=== PATIENT | female | born 1980 | race Hispanic/Latino ===

== ENCOUNTER 2016-12-11 01:18 | Emergency (ER) | payer BC ==
[2016-12-11 01:40] VITALS: O2SAT 98
--- NOTE | 2016-12-11 02:25 | ED PDOC ---
HPI: Abdomen Time Seen by Provider: 12/11/16 01:30 Chief Complaint (Nursing): GI Problem Chief Complaint (Provider): GI Problem History Per: Patient History/Exam Limitations: no limitations Onset/Duration Of Symptoms: Hrs (Three) Outside of [place] travel?: No Current Symptoms Are (Timing): Still Present Severity: Mild Associated Symptoms: Nausea, Vomiting. denies: Fever, Chills, Diarrhea, Chest Pain Exacerbating Factors: Movement Additional Complaint(s): 36 y/o female patient presenting to the ED with nausea, vomiting and dizziness. Patient states she was sleeping and was woken up with dizziness. When she got up she notes she began feeling nauseous and began vomiting a few times over the last three hours. Patient reports nausea, vomiting and dizziness (which she notes appears that the room is "swinging") and denies diarrhea, syncope, ear pain or ringing and headache. Patient denies any past medical history and current primary care provider is Dr. Daniela Hahn MD. Past Medical History Reviewed: Historical Data, Nursing Documentation, Vital Signs Vital Signs: Last Vital Signs Temp 98.1 F 12/11/16 05:04 Pulse 74 12/11/16 06:20 Resp 18 12/11/16 05:04 BP 114/71 12/11/16 05:04 Pulse Ox 98 12/11/16 06:20 - Medical History PMH: Hypothyroidism - Surgical History Surgical History: Tonsillectomy - Family History Family History: States: Unknown Family Hx - Social History Current smoker - smoking cessation education provided: No Alcohol: None Drugs: Denies - Home Medications Home Medications: Ambulatory Orders Medication Instructions Recorded Levothyroxine Sodium [Synthroid] 0.135 mg PO 02/01/14 Ondansetron ODT [Zofran ODT] 4 mg PO Q6 PRN #16 odt 02/02/14 Meclizine [Meclizine*] 25 mg PO Q6 PRN #15 tab 12/11/16 - Allergies Allergies/Adverse Reactions: Allergies Allergy/AdvReac Type Severity Reaction Status Date / Time No Known Allergies Allergy Verified 02/01/14 21:56 Review of Systems ROS Statement: Except As Marked, All Systems Reviewed And Found Negative Constitutional: Negative for: Fever ENT: Negative for: Ear Pain ((-)Ear Ringing) Cardiovascular: Negative for: Chest Pain Gastrointestinal: Positive for: Nausea, Vomiting. Negative for: Diarrhea Neurological: Positive for: Dizziness, Other ((-)Syncope). Negative for: Headache Physical Exam - Reviewed Nursing Documentation Reviewed: Yes Vital Signs Reviewed: Yes - Physical Exam Appears: Positive for: No Acute Distress, In Acute Distress Head Exam: Positive for: ATRAUMATIC, NORMAL INSPECTION Skin: Positive for: Normal Color, Warm, Dry Eye Exam: Positive for: Normal appearance ENT: Positive for: Normal ENT Inspection Neck: Positive for: Normal, Painless ROM, Supple Cardiovascular/Chest: Positive for: Regular Rate, Rhythm. Negative for: Murmur Respiratory: Positive for: Normal Breath Sounds. Negative for: Wheezing, Respiratory Distress Gastrointestinal/Abdominal: Positive for: Normal Exam Neurologic/Psych: Positive for: Alert, Oriented. Negative for: Motor/Sensory Deficits - Laboratory Results Result Diagrams: 12/11/16 02:28 12/11/16 02:28 - ECG ECG: Positive for: Interpreted By Me, Viewed By Me ECG Rhythm: Positive for: Normal QRS, Normal ST Segment, Sinus Rhythm, Right Bundle Branch Block Rate: 74 O2 Sat by Pulse Oximetry: 98 (RA) Pulse Ox Interpretation: Normal - Progress Re-evaluation Time: 06:00 Condition: Re-examined, Improved Medical Decision Making Medical Decision Making: Time: 211 Initial impression: Vertigo with vomiting Initial plan: --HEAD W/O CONTRAST --EKG --CMP --TROPONIN I --ED URINE DIPSTICK --ED URINE --EKG-ED --CBC --MECLIZINE 25MG PO ONCE --ONDANSETRON 4MG IV ONCE [id number]: EXAM: CT Head Without Intravenous Contrast CLINICAL HISTORY: 36 years old, female; Signs and symptoms; Dizziness TECHNIQUE: Axial computed tomography images of the head/brain without intravenous contrast. This CT exam was performed using one or more of the following dose reduction techniques: automated exposure control, adjustment of the mA and/or kV according to patient size, and/or use of iterative reconstruction technique. Coronal and sagittal reformatted images were created and reviewed. EXAM DATE/TIME: 12/11/2016 2:16 AM COMPARISON: No relevant prior studies available. FINDINGS: There is no midline shift or mass effect. There is no intracranial blood or extra-axial fluid collection. There is no acute ischemic stroke. The skull shows no evidence of injury or other acute pathologic processes. IMPRESSION: There is no acute intracranial abnormality Scribe Attestation: Documented by Selina Colon, acting as a scribe for Dennise Lam MD. Scribe Attestation: All medical record entries made by the Scribe were at my direction and personally dictated by me. I have reviewed the chart and agree that the record accurately reflects my personal performance of the history, physical exam, medical decision making, and the department course for this patient. I have also personally directed, reviewed, and agree with the discharge instructions and disposition. Disposition - Clinical Impression Clinical Impression: Vertigo - Patient ED Disposition Is Patient to be Admitted: No Doctor Will See Patient In The: Office Counseled Patient/Family Regarding: Studies Performed, Diagnosis, Need For Followup - Disposition Referrals: Daniela Hahn MD [Primary Care Provider] - Leon Gonzalez MD [Staff Provider] - Hermilo Hinton MD [Medical Doctor] - Disposition: Routine/Home Disposition Time: 06:19 Condition: GOOD Additional Instructions: Take your medications as instructed. Follow up with your PCP in 2-3 days. Prescriptions: Meclizine [Meclizine*] 25 mg PO Q6 PRN #15 tab PRN Reason: Dizziness Instructions: Vertigo (ED) Forms: [employer] (Macedonian)
[2016-12-11 02:37] LABS: ALBUMIN 4.6 g/dL (3.5-5.0)
[2016-12-11 02:39] LABS: GFR AFRICAN-AMERICAN > 60; GFR NON-AFRICAN AMERICAN > 60
[2016-12-11 02:40] LABS: ALB/GLOB RATIO 1.5 (1.0-2.1); ALT/SGPT 30 U/L (9-52); AST/SGOT 33 U/L (14-36); BLOOD UREA NITROGEN 23 mg/dl (7-17)
[2016-12-11 02:41] LABS: CALCIUM 9.8 mg/dL (8.4-10.2)
[2016-12-11 02:43] LABS: BASO % 0.5 % (0.0-2.0); EOS # 0.1 K/uL (0.0-0.7); HEMOGLOBIN 13.3 g/dL (12.0-16.0); LYMPH # 1.7 K/uL (1.0-4.3); LYMPH % 19.6 % (20.0-40.0); MEAN CORPUSCULAR HEMOGLOBIN 28.6 pg (27.0-31.0); MEAN CORPUSCULAR HGB CONC 33.2 g/dL (33.0-37.0); MONO # 0.5 K/uL (0.0-0.8); MONO % 5.4 % (0.0-10.0); NEUT # 6.5 K/uL (1.8-7.0); NEUT % 73.5 % (50.0-75.0); RBC 4.66 Mil/uL (3.80-5.20); RED CELL DISTRIBUTION WIDTH 13.7 % (11.5-14.5); WHITE BLOOD COUNT 8.8 K/uL (4.8-10.8)
[2016-12-11 05:05] VITALS: BP 114/71; RESP 18; TEMP 98.1
[2016-12-11 06:20] VITALS: PULSE 74
--- NOTE | 2016-12-11 08:52 | CT ---
PROCEDURE: CT HEAD WITHOUT CONTRAST. HISTORY: dizziness COMPARISON: None available. TECHNIQUE: Axial computed tomography images were obtained through the head/brain without intravenous contrast. Radiation dose: Total exam DLP = 843.87 mGy-cm. This CT exam was performed using one or more of the following dose reduction techniques: Automated exposure control, adjustment of the mA and/or kV according to patient size, and/or use of iterative reconstruction technique. FINDINGS: HEMORRHAGE: No intracranial hemorrhage. BRAIN: No mass effect or edema. No atrophy or chronic microvascular ischemic changes. VENTRICLES: Unremarkable. No hydrocephalus. CALVARIUM: Unremarkable. PARANASAL SINUSES: Unremarkable as visualized. No significant inflammatory changes. MASTOID AIR CELLS: Unremarkable as visualized. No inflammatory changes. OTHER FINDINGS: None. IMPRESSION: Normal CT of the Head. No intracranial mass, hemorrhage or evidence of acute infarct. Preliminary interpretation of this examination was reported by [facility] at 6:15 a.m. on 12/11/2016. There is concurrence of this report with the preliminary interpretation.
--- NOTE | 2016-12-11 10:12 | CARD ---
APPROVED REPORT EKG Measurement Heart [id number] <Conclusion> Normal sinus rhythm Incomplete right bundle branch block Borderline ECG
== END 2016-12-11 06:49 | disposition home or self-care (01) ==
LOC: H.ER 01:18
DX: R42 Dizziness and giddiness (principal); R11.2 Nausea with vomiting, unspecified; E03.9 Hypothyroidism, unspecified
CPT/HCPCS: 70450; 80053; 81025; 82948; 84484; 85025; 93005; 96374; 99284; J2405

== ENCOUNTER 2017-04-17 14:15 | Emergency (ER) | payer BC ==
[2017-04-17 14:27] VITALS: TEMP 98.2
--- NOTE | 2017-04-17 14:55 | ED PDOC ---
HPI: Chest Pain Time Seen by Provider: 04/17/17 14:20 Chief Complaint (Nursing): Chest Pain Chief Complaint (Provider): Chest pain History Per: Patient Additional Complaint(s): patient c/o chest pain, states feels like there is someone sitting on her chest , was seen at Urgent Care yesterday and given a steroid shot, not feeling any better, pain not reproducible with breathing or movement Past Medical History Vital Signs: Last Vital Signs Temp 98.2 F 04/17/17 14:22 Pulse 73 04/17/17 20:20 Resp 16 04/17/17 20:20 BP 127/72 04/17/17 20:20 Pulse Ox 98 04/17/17 20:20 - Medical History PMH: Hypothyroidism Denies: Chronic Kidney Disease - Surgical History Surgical History: Tonsillectomy - Family History Family History: States: Unknown Family Hx - Home Medications Home Medications: Ambulatory Orders Medication Instructions Recorded Levothyroxine Sodium [Synthroid] 0.135 mg PO 02/01/14 Ondansetron ODT [Zofran ODT] 4 mg PO Q6 PRN #16 odt 02/02/14 Meclizine [Meclizine*] 25 mg PO Q6 PRN #15 tab 12/11/16 Cyclobenzaprine [Cyclobenzaprine 10 mg PO TID #20 tab 04/17/17 HCl] Ibuprofen [Motrin] 600 mg PO Q6 #20 tab 04/17/17 - Allergies Allergies/Adverse Reactions: Allergies Allergy/AdvReac Type Severity Reaction Status Date / Time No Known Allergies Allergy Verified 02/01/14 21:56 - Laboratory Results Result Diagrams: 04/17/17 15:04 04/17/17 15:04 - ECG O2 Sat by Pulse Oximetry: 99 Medical Decision Making Medical Decision Making: IMPRESSION: No evidence of acute pulmonary embolism up to the major segmental level.One or more very small peripheral pulmonary emboli cannot be excluded. Correlate clinically Pt offered admission and declined Disposition - Clinical Impression Clinical Impression: Chest pressure - Disposition Referrals: Eitan Garcia MD [Staff Provider] - Condition: STABLE Prescriptions: Cyclobenzaprine [Cyclobenzaprine HCl] 10 mg PO TID #20 tab Ibuprofen [Motrin] 600 mg PO Q6 #20 tab Instructions: Chest Pain (ED), Costochondritis (ED) Forms: [employer] (Indonesian)
[2017-04-17 15:09] LABS: BASO % 0.2 % (0.0-2.0); HEMATOCRIT 41.9 % (34.0-47.0); LYMPH # 0.9 K/uL (1.0-4.3); LYMPH % 7.6 % (20.0-40.0); MEAN CELL VOLUME 86.1 fl (81.0-99.0); MEAN CORPUSCULAR HGB CONC 32.5 g/dL (33.0-37.0); MEAN PLATELET VOLUME 9.1 fl (7.2-11.7); MONO # 0.3 K/uL (0.0-0.8); MONO % 2.3 % (0.0-10.0); NEUT # 10.6 K/uL (1.8-7.0); NEUT % 89.9 % (50.0-75.0); PLATELET COUNT 191 K/uL (130-400); RED CELL DISTRIBUTION WIDTH 13.3 % (11.5-14.5); WHITE BLOOD COUNT 11.8 K/uL (4.8-10.8)
[2017-04-17 15:18] LABS: RBC URINE 3 /hpf (0-3); URINE BILIRUBIN NEGATIVE (NEGATIVE); URINE BLOOD NEGATIVE (NEGATIVE); URINE COLOR YELLOW (YELLOW); URINE GLUCOSE (UA) NEG (Normal); URINE KETONE NEGATIVE (NEGATIVE); URINE LEUKOCYTE ESTERASE NEG Leu/uL (Negative); URINE PROTEIN NEGATIVE (NEGATIVE); URINE UROBILINOGEN 0.2-1.0 mg/dL (0.2-1.0); WBC URINE 2 /hpf (0-5)
--- NOTE | 2017-04-17 15:21 | RAD ---
HISTORY: CP COMPARISON: No prior. TECHNIQUE: Chest PA and lateral FINDINGS: LUNGS: No active pulmonary disease. PLEURA: No significant pleural effusion identified. No pneumothorax apparent. CARDIOVASCULAR: Normal. OSSEOUS STRUCTURES: No significant abnormalities. VISUALIZED UPPER ABDOMEN: Normal. OTHER FINDINGS: None. IMPRESSION: No active disease.
[2017-04-17 15:27] LABS: ALKALINE PHOSPHATASE 57 U/L (38-126); ALT/SGPT 37 U/L (9-52); AST/SGOT 26 U/L (14-36); BILIRUBIN,TOTAL 0.3 mg/dl (0.2-1.3); BLOOD UREA NITROGEN 18 mg/dl (7-17); CALCIUM 9.7 mg/dL (8.4-10.2); CARBON DIOXIDE 24 mmol/L (22-30); CHLORIDE 105 mmol/L (98-107); GFR AFRICAN-AMERICAN > 60; GLUCOSE,RANDOM 117 mg/dL (65-105); POTASSIUM 4.1 MMOL/L (3.6-5.0); SODIUM 140 mmol/l (132-148); TOTAL PROTEIN 8.5 G/DL (6.3-8.2)
[2017-04-17 15:30] LABS: ALB/GLOB RATIO 1.5 (1.0-2.1)
[2017-04-17 16:08] LABS: BASOPHIL 1 % (0-2); NEUTROPHIL 86 % (42-75); TOTAL CELLS COUNTED 100
[2017-04-17 16:10] LABS: LARGE PLATELETS PRESENT
[2017-04-17] MEDS ORDERED: diaZEpam 10 mg/2 ml Inj IVP ONE (17:14)
[2017-04-17] MEDS ORDERED: Sodium Chloride 0.9% 50 ML IV ONE (18:50)
[2017-04-17] MEDS ORDERED: Iodixanol 320 MG/ML 100 ML BOTTLE IV ONE (18:50)
[2017-04-17 20:21] VITALS: BP 127/72; PULSE 73; RESP 16
[2017-04-17 20:23] VITALS: O2SAT 99
--- NOTE | 2017-04-18 10:16 | CARD ---
APPROVED REPORT EKG Measurement Heart [id number] <Conclusion> Normal sinus rhythm Incomplete right bundle branch block Borderline ECG
--- NOTE | 2017-04-18 15:57 | CT ---
PROCEDURE: CT Chest with contrast (Pulmonary Angiogram) HISTORY: dimer elevated COMPARISON: None available. TECHNIQUE: Axial computed tomography images were obtained of the chest in the pulmonary arterial phase of enhancement. Coronal and sagittal reformatted images were created and reviewed. Intravenous contrast dose: 80 cc Visipaque 320 contrast material Radiation dose: Total exam DLP = 252.72 mGy-cm. This CT exam was performed using one or more of the following dose reduction techniques: Automated exposure control, adjustment of the mA and/or kV according to patient size, and/or use of iterative reconstruction technique. FINDINGS: PULMONARY ARTERIES: The visualized pulmonary trunk, right and left main, lobar, segmental and proximal subsegmental branches of the pulmonary arteries are well opacified with no definitive filling defects seen to suggest acute central pulmonary embolus. Pulmonary trunk measures approximately 2.57 cm. AORTA: No acute findings. No thoracic aortic aneurysm. The ascending thoracic aorta measures approximately 2.85 cm and descending thoracic aorta measures approximately 2.03 cm. LUNGS: Unremarkable. No nodule, mass or pulmonary consolidation. PLEURAL SPACES: Unremarkable. No effusion or pneuomothorax. HEART: Unremarkable. No cardiomegaly. No significant pericardial effusion. LYMPH NODES: No lymphadenopathy. BONES, CHEST WALL: Unremarkable. No fracture or destructive lesion OTHER FINDINGS: Unremarkable. IMPRESSION: No evidence of acute central pulmonary embolus. Concordant preliminary report provided by overnight radiology service.
== END 2017-04-17 20:21 | disposition home or self-care (01) ==
LOC: H.ER 14:15
DX: R07.89 Other chest pain (principal); E03.9 Hypothyroidism, unspecified
CPT/HCPCS: 71020; 71275; 80053; 81003; 81025; 84443; 84484; 85025; 85378; 93005; 99283; Q9967